=== PATIENT | female | born 1985 | race Caucasian/White ===

== ENCOUNTER 2016-06-29 18:24 | Emergency (ER) | payer MEDICAID ==
[2016-06-29] MEDS ORDERED: LIDOCAINE 5% (700 MG) TRANSDERMAL ADH..PATCH TP ONE (18:54)
[2016-06-29] MEDS ORDERED: IBUPROFEN 600 MG TABLET PO ONE (18:54)
[2016-06-29] MEDS ORDERED: DIPH/PERTUSS(ACELL)/TETANUS VAC/PF 0.5 ML SYR (>=10YO) IM ONE (19:29)
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
[2016-06-29 19:38] VITALS: BP 136/88
== END 2016-06-29 19:48 | disposition home or self-care (01) ==
LOC: ER 18:24
DX: S70.211A Abrasion, right hip, initial encounter (principal); M25.551 Pain in right hip; F17.200 Nicotine dependence, unspecified, uncomplicated; V03.19XA Pedestrian with other conveyance injured in collision with car, pick-up truck or van in traffic accident, initial encounter
CPT/HCPCS: 99283

== ENCOUNTER 2017-04-07 17:55 | Outpatient (CLI) | payer MEDICAID ==
[2017-04-07 18:22] LABS: APPEARANCE,URINE SLIGHTLY-CLOUDY; BILIRUBIN,URINE NEGATIVE (NEGATIVE); GLUCOSE, URINE NEGATIVE (NEGATIVE); KETONES,URINE NEGATIVE (NEGATIVE); LEUKOCYTE ESTERASE,URINE MODERATE (NEGATIVE); NITRITE,URINE NEGATIVE (NEGATIVE); PROTEIN,URINE NEGATIVE (NEGATIVE); URINE SPECIFIC GRAVITY 1.001; UROBILINOGEN,URINE NEGATIVE mg/dL (<2.0)
[2017-04-07 18:35] LABS: URINE BARBITURATES SCREEN NEGATIVE; URINE METHADONE SCREEN NEGATIVE; URINE OPIATES LOW NEGATIVE; URINE PHENCYCLIDINE SCREEN NEGATIVE
--- NOTE | 2017-04-07 19:06 | Non Stress Test Report ---
Non Stress Test Datetime Report Generated by CPN: 04/07/2017 19:05 DEMOGRAPHIC EGA NST: 36.6 INDICATION Indication for Study: Ordered by Provider MONITORING Monitor Explained: Monitor Explained; Test Explained; Patient Verbalized Understanding Time on Monitor: 04/07/2017 18:11 Time off Monitor: 04/07/2017 18:53 NST Duration: 42 NST INTERVENTIONS NST Interventions: None Physician Notified NST: Dr Montes BABY A: [id number] BABY A Movement : Present Contraction Frequency : irregular FHR Baseline : 120 Accelerations : 15X15 Decelerations : None Variability : Moderate 6-25bpm NST Review: Meets Criteria for Reactive NST NST Review and Verified By : Hieu Walton RN NST Results: Reactive NST REPORT Report Trigger: Send Report
== END 2017-04-07 18:58 | disposition home or self-care (01) ==
LOC: LC 17:55
PROVIDERS: ATTEND Obstetrics & Gynecology
PROC: 4A1HXCZ Monitoring of Products of Conception, Cardiac Rate, External Approach (ICD-10-PCS; principal; 2017-04-07)
DX: Z34.93 Encounter for supervision of normal pregnancy, unspecified, third trimester (principal)
CPT/HCPCS: 59025; 80307; 81005; 87081

== ENCOUNTER 2017-05-30 11:56 | Emergency (ER) | payer MEDICAID ==
[2017-05-30] MEDS ORDERED: CEPHALEXIN 500 MG CAPSULE PO ONE (12:26)
[2017-05-30] MEDS ORDERED: LIDOCAINE 1% INJ-PF (10 MG/ML) 30 ML SDV INJ ONE (12:26)
[2017-05-30] MEDS ORDERED: DIPH/PERTUSS(ACELL)/TETANUS VAC/PF 0.5 ML SYR (>=10YO) IM ONE (12:26)
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
[2017-05-30] MEDS ORDERED: ACETAMINOPHEN WITH CODEINE #3 TABLET PO ONE (12:29)
--- NOTE | 2017-05-30 13:32 | RADIOLOGY REPORT (SQ) ---
EXAM DESCRIPTION: HAND RIGHT 3 VIEWS COMPLETED DATE/TIME: 05/30/2017 1:07 pm REASON FOR STUDY: lacs, r/o FB COMPARISON: Right forearm films same date EXAM PARAMETERS: NUMBER OF VIEWS: Three views. TECHNIQUE: AP, lateral and oblique radiographic images acquired of the right hand. LIMITATIONS: None. FINDINGS: MINERALIZATION: Normal. BONES: No acute fracture or dislocation. No worrisome bone lesions. JOINTS: No effusions. SOFT TISSUES: There are lacerations along ulnar aspect of the right hand near the 5th MCP joint, and at the 5th finger PIP joint. Tiny fragments glass are seen in the laceration at the fifth finger PIP joint region. No definite radiopaque foreign body in the laceration along the fifth MCP joint OTHER: No other significant finding. IMPRESSION: Laceration without definite radiopaque foreign body, ulnar hand near the MCP joint. Laceration with few tiny radiopaque foreign bodies fifth finger PIP joint region TECHNICAL DOCUMENTATION: JOB ID: [id number] [employer]- All Rights Reserved
--- NOTE | 2017-05-30 13:35 | RADIOLOGY REPORT (SQ) ---
EXAM DESCRIPTION: FOREARM RIGHT COMPLETED DATE/TIME: 05/30/2017 1:07 pm REASON FOR STUDY: lacs, r/o FB COMPARISON: Right hand films same day NUMBER OF VIEWS: Two views. TECHNIQUE: Two radiographic images acquired of the right forearm, including elbow and wrist in at le ast one projection. LIMITATIONS: None. FINDINGS: MINERALIZATION: Normal. BONES: No acute fracture. No worrisome bone lesions. SOFT TISSUES: Laceration over the ulnar soft tissues distal right forearm, and along the soft tissues near the radial styloid. No radiopaque foreign body OTHER: No other significant finding. IMPRESSION: Laceration over the right distal forearm ulnar aspect, and along the soft tissues near t he radial styloid. No definite radiopaque foreign body. No underlying bony injury. TECHNICAL DOCUMENTATION: JOB ID: [id number] [employer]- All Rights Reserved
[2017-05-30 15:51] VITALS: BP 140/92
== END 2017-05-30 15:50 | disposition home or self-care (01) ==
LOC: ER 11:56
DX: S61.412A Laceration without foreign body of left hand, initial encounter (principal); S61.217A Laceration without foreign body of left little finger without damage to nail, initial encounter; S51.812A Laceration without foreign body of left forearm, initial encounter; S61.512A Laceration without foreign body of left wrist, initial encounter; W45.8XXA Other foreign body or object entering through skin, initial encounter; Y93.G1 Activity, food preparation and clean up; Y92.009 Unspecified place in unspecified non-institutional (private) residence as the place of occurrence of the external cause
CPT/HCPCS: 99283; 90471; 73090; 73130; 90715; 12006; J3490

== ENCOUNTER 2019-05-20 08:40 | Emergency (ER) | payer MEDICAID ==
--- NOTE | 2019-05-20 10:22 | ER Document Report ---
ED General - General Chief Complaint: Vaginal Bleeding Stated Complaint: VAGINAL BLEEDING//LOWER BACK PAIN Time Seen by Provider: 05/20/19 10:15 Primary Care Provider: ANASTACIA MEDEL FNP-C [Primary Care Provider] - Follow up as needed TRAVEL OUTSIDE OF THE [place] IN LAST 30 DAYS: No - HPI Notes: [id number], LMP 04-19-2019, last complicated by abruption of placenta, htn even outside setting of , presents today for light bleeding that started yesterday now is heavy she denies any abdominal trauma she denies any abdominal pain no vomiting. She is a cigarette smoker, - Related Data Allergies/Adverse Reactions: coconut Allergy (Severe, Verified 05/20/19 10:36) rash acetaminophen [From Vicodin] Allergy (Verified 05/20/19 10:36) hydrocodone [From Vicodin] Allergy (Verified 05/20/19 10:36) oxycodone [From Percocet] Allergy (Verified 05/20/19 10:36) nickel Adverse Reaction (Severe, Verified 05/20/19 10:36) rash Past Medical History - General Information source: Patient - Social History Smoking Status: Current Every Day Smoker Chew tobacco use (# tins/day): No Frequency of alcohol use: Social Drug Abuse: None Family History: Reviewed & Not Pertinent Patient has suicidal ideation: No Patient has homicidal ideation: No - Past Medical History Cardiac Medical History: Denies: Hx Coronary Artery Disease, Hx Heart Attack, Hx Hypertension - flucturates with b/c pill/no meds Pulmonary Medical History: Denies: Hx Asthma, Hx Bronchitis, Hx COPD, Hx Pneumonia Neurological Medical History: Denies: Hx Cerebrovascular Accident, Hx Seizures Renal/ Medical History: Reports: Other - Besides last preg C/B by placenta abruptioe, all . Denies: Hx Ectopic , Hx Pelvic Inflammatory Disease GI Medical History: Denies: Hx Hepatitis, Hx Hiatal Hernia, Hx Ulcer Musculoskeletal Medical History: Denies Hx Arthritis Infectious Medical History: Denies: Hx Hepatitis Past Surgical History: Denies: Hx Hysterectomy, Hx Mastectomy, Hx Open Heart Surgery, Hx Pacemaker - Immunizations Hx Diphtheria, Pertussis, Tetanus Vaccination: Yes Review of Systems - Review of Systems Constitutional: No symptoms reported EENT: No symptoms reported Cardiovascular: No symptoms reported Respiratory: No symptoms reported Gastrointestinal: No symptoms reported, See HPI. denies: Abdominal pain, Diarrhea, Nausea, Vomiting, Constipation, Poor appetite, Poor fluid intake, Black stools, Rectal bleeding Genitourinary: No symptoms reported Female Genitourinary: No symptoms reported, Last menstrual period - --19, - They have set up their first OB appointment for this afternoon actually prior to knowing she had started to have vaginal bleeding. Musculoskeletal: No symptoms reported. denies: Back pain Skin: No symptoms reported Hematologic/Lymphatic: No symptoms reported Neurological/Psychological: No symptoms reported Physical Exam - Vital signs Vitals: Temp Pulse Resp BP Pulse Ox 98.0 F 92 16 146/101 H 99 05/20/19 08:52 05/20/19 08:52 05/20/19 08:52 05/20/19 08:52 05/20/19 08:52 Interpretation: Normal - General General appearance: Appears well, Alert In distress: None - HEENT Head: Normocephalic, Atraumatic Eyes: Normal. No: Pale conjunctiva, Periorbital edema, Scleral icterus Pupils: PERRL Mucous membranes: Normal, Moist Pharynx: Normal. No: Erythema, Exudate Neck: Normal. No: Thyroid nodule, Thyromegally - Respiratory Respiratory status: No respiratory distress Chest status: Nontender Breath sounds: Normal Chest palpation: Normal - Cardiovascular Rhythm: Regular, Other - All EXT WWP X4 Heart sounds: Normal auscultation Murmur: No Pulses: Normal: Radial - Symmetric - Abdominal Inspection: Normal Distension: No distension. No: Distended bladder Bowel sounds: Normal Tenderness: Nontender. No: McBurney's point, Sol's sign, Guarding, Rebound Organomegaly: No organomegaly - Genitourinary External exam: Other. No: Lesions, Laceration, Bruising Speculum exam: Cervix closed, Other - Very slow oozing of vaginal blood from closed office without any clotting or other solid materials. Otherwise cervical mucosa appears healthy as well as vaginal wall and external genitalia no evidence of any infection or discharge.. No: Products of conception - Back Back: Normal, Nontender. No: Deformity/step-off, CVA tenderness, Vertebra tenderness, Wounds - Extremities General upper extremity: Normal inspection - No edema no tenderness no asymmetry BUE/BLE, Nontender, Normal color, Normal ROM, Normal temperature General lower extremity: Normal inspection, Nontender, Normal color, Normal ROM, Normal temperature, Normal weight bearing. No: Elle's sign - Neurological Neuro grossly intact: Yes Cognition: Normal Orientation: AAOx4 Jacqueline Coma Scale Eye Opening: Spontaneous Jacqueline Coma Scale Verbal: Oriented Jacqueline Coma Scale Motor: Obeys Commands Jacqueline Coma Scale Total: 15 Speech: Normal Motor strength normal: LUE, RUE, LLE, RLE Sensory: Normal - Psychological Associated symptoms: Normal affect, Normal mood - Skin Skin Temperature: Warm Skin Moisture: Dry Skin Color: Normal Course - Re-evaluation Re-evalutation: 05/20/19 23:45 Did go for transvaginal ultrasound since I could not see a definitive yolk sac or intrauterine on transabdominal scan at bedside in ED. I could not see any free fluid in the pelvis either. Patient tolerated that well. She had no evidence of definite IUP or evidence of ectopic on TVUS. Patient was waiting for me to come tell her the report prior to me discharging also reviewed patient's prior blood bank screens saying that she was Rh+. Her urine did show blood as expected and white blood cells and positive LE in setting of no urinary symptoms. Wrote for Keflex for asymptomatic bacteriuria in and sent urine culture. No evidence of BV or GC/CZ on speculum exam samples of endocervix. Ordered serum hCG. But, RN looking for patient and found she seemed to have left when out on second trip to [place] for [employer] and prior to me being able to discharge her give her prescription or discuss specifically the fact that we need to draw a serum hCG and it imperative that she follows up for a second hCG within 48 to 72 hours at her OB provider since we cannot rule out ectopic and we know she is versus we cannot see on transvaginal ultrasound 2/2 she is early per LMP. Also wanted to discuss warning signs to return more immediately if she has abdominal pain or brisk continued vaginal bleeding. Or is unable for some reason to follow-up with her SHAKER REPAIRER within this 48 to 72-hour. Nurse finally got in contact with the patient and patient explained she had to pick her kids up from school. She did miss her initial OB appointment at the clinic because she was here she explained to nurse but nurse took down her number and patient understands I will be calling her I tried a few times in the evening and go straight to voicemail and says this found does not have voicemail set up. I will try again in the morning the number we have on file for her in the number for which the nurse talked to her earlier after a few unsuccessful times in which she also had gotten the same voicemail message as above. - Vital Signs Vital signs: Temp Pulse Resp BP Pulse Ox 98.3 F 67 16 152/96 H 100 05/20/19 12:57 05/20/19 12:57 05/20/19 12:57 05/20/19 12:57 05/20/19 12:57 - Laboratory Laboratory results interpreted by me: 05/20/19 09:30 Urine Protein 100 H Urine Blood MODERATE H Ur Leukocyte Esterase SMALL H Urine HCG, Qual POSITIVE H - Diagnostic Test Radiology reviewed: Image reviewed, Reports reviewed Discharge - Discharge Clinical Impression: UTI (urinary tract infection) during , First trimester bleeding, Cant r/o ectopic early preg Condition: Good Disposition: ELOPED Additional Instructions: Please keep your appointment with your SHAKER REPAIRER this afternoon or call if unable to get there today to reschedule. Today we are sending off a blood hCG level. This will need to be reviewed by her SHAKER REPAIRER and then a repeat is needed in 48 to 72 hours. Therefore when you call to reschedule appointment today say you also need to have this lab test done, since we were unable to see a intrauterine , which could be expected since you are early per your last menstrual period, but we also need to ensure you do not have an ectopic . On the ultrasound we did not see an ectopic either but that does not mean it is not possible still. Watch for any continued heavy vaginal bleeding more than a few hours at a time or any dizziness, otherwise we checked your blood type, and therefore you do not need any interventions for your bleeding in . We are prescribing you an antibiotic for some white blood cells in your urine, we are sending off a urine culture which will result in a few days I am writing you an antibiotic it is important to take since you are and your increased risk for developing a renal infection. They will call you with the urine culture results if there is a need for a different type of antibiotic than the one I am prescribing. Prescriptions: Cephalexin [Cephalexin 500 MG Tablet] 500 mg PO BID 7 Days #14 tablet Referrals: ANASTACIA MEDEL, DATA CAPTURE CLERK-C [Primary Care Provider] - Follow up as needed
[2019-05-20 10:23] LABS: APPEARANCE,URINE SLIGHTLY-CLOUDY; BILIRUBIN,URINE NEGATIVE (NEGATIVE); COLOR,URINE RED; GLUCOSE, URINE NEGATIVE (NEGATIVE); KETONES,URINE NEGATIVE (NEGATIVE); LEUKOCYTE ESTERASE,URINE SMALL (NEGATIVE); NITRITE,URINE NEGATIVE (NEGATIVE); PROTEIN,URINE 100 mg/dL (NEGATIVE); UROBILINOGEN,URINE NEGATIVE mg/dL (<2.0)
[2019-05-20 11:39] LABS: BACTERIA (WET MOUNT) 3+ BACTERIA SEEN; RBCS (WET MOUNT) 4+ RBCS SEEN; T.VAGINALIS (WET MOUNT) NO TRICHOMONAS SEEN; WBCS (WET MOUNT) FEW WBCS SEEN; YEAST (WET MOUNT) NO YEAST SEEN
--- NOTE | 2019-05-20 12:31 | RADIOLOGY REPORT (SQ) ---
EXAM DESCRIPTION: U/S OB TRANSVAGINAL W/O DOP COMPLETED DATE/TIME: 05/20/2019 12:17 pm REASON FOR STUDY: bleeding 1st trimester COMPARISON: 04/03/2017 TECHNIQUE: Transvaginal static and realtime grayscale images acquired of the pelvis. Additional chong cted spectral and color Doppler images recorded. All images stored on PACs. CLINICAL AGE: LMP: 04/18/2019, JORGE: 01/23/2020, EGA: 4 weeks 4 days BHCG: Not available. LIMITATIONS: None. FINDINGS: UTERUS: No visualized intrauterine . Uterus measures 9.0 x 4.7 x 4.4 cm. Endome trial stripe measures 8.9 mm. RIGHT ADNEXA: Nonvisualized. No adnexal free fluid. No adnexal masses. LEFT ADNEXA: Nonvisualized. No adnexal free fluid. No adnexal masses. FREE FLUID: None. OTHER: No other significant finding. IMPRESSION: NO VISUALIZED INTRA- OR EXTRAUTERINE WHICH IS NOT UNEXPECTED GIVEN CLINICAL DA SURESH. bHCG LEVEL NOT AVAILABLE FOR CORRELATION WITH US FINDINGS. ECTOPIC CANNOT BE EXCLUDED. FOLLOW-UP ULTRASOUND AND SERIAL BHCG LEVELS RECOMMENDED TO ACCURATELY ASSESS STATUS. TECHNICAL DOCUMENTATION: JOB ID: [id number] [employer]- All Rights Reserved Reading location - IP/workstation name: [email or web address]
[2019-05-20 12:57] LABS: CHLAM PCR NOT DETECTED (NOT DETECT)
[2019-05-20 12:58] VITALS: BP 152/96
== END 2019-05-20 14:00 | disposition left against medical advice (07) ==
LOC: ER 08:40
DX: O23.41 Unspecified infection of urinary tract in pregnancy, first trimester (principal); O46.91 Antepartum hemorrhage, unspecified, first trimester; O26.891 Other specified pregnancy related conditions, first trimester; M54.5 Low back pain; O10.911 Unspecified pre-existing hypertension complicating pregnancy, first trimester; O99.331 Smoking (tobacco) complicating pregnancy, first trimester; Z3A.00 Weeks of gestation of pregnancy not specified
CPT/HCPCS: 76817; 81001; 81025; 87086; 87210; 87491; 87591; 99281

== ENCOUNTER 2019-11-26 22:35 | Emergency (ER) | payer SELFPAY ==
[2019-11-26 22:46] VITALS: BP 109/55
[2019-11-26 23:27] LABS: ABSOLUTE EOSINOPHILS # (AUTO) 0.1 10^3/uL (0.0-0.6); ABSOLUTE MONOCYTES (AUTO) 0.5 10^3/uL (0.1-1.4); HEMOGLOBIN 10.5 g/dL (12.0-15.5); MEAN CORPUSCULAR VOLUME 101 fl (80-97); PLATELET COUNT 231 10^3/uL (150-450); TOTAL CELLS COUNTED % (AUTO) 100 %
[2019-11-26 23:40] LABS: ABSOLUTE LYMPHOCYTES (AUTO) 2.5 10^3/uL (0.5-4.7); BASOPHILS % (AUTO) 0.5 % (0-2); EOSINOPHILS % (AUTO) 1.1 % (0-6); LYMPHOCYTES % (AUTO) 27.5 % (13-45); MEAN CORPUSCULAR HEMOGLOBIN 35.6 pg (27.0-33.4); MEAN CORPUSCULAR HGB CONC 35.1 g/dL (32.0-36.0); RED BLOOD COUNT 2.95 10^6/uL (3.72-5.28); RED CELL DISTRIBUTION WIDTH 15.1 % (11.5-14.0); SEGMENTED NEUTROPHILS % (AUTO) 65.9 % (42-78); WHITE BLOOD COUNT 9.1 10^3/uL (4.0-10.5)
--- NOTE | 2019-11-27 00:23 | ER Document Report ---
ED General - General Chief Complaint: Vag Bleeding, +preg <12wks Stated Complaint: HYPOGASTRIC/PELVIC PAIN Time Seen by Provider: 11/26/19 23:49 Notes: 34-year-old female who is a G5, presents the emergency department at 7 weeks gestation with a due date of April 21 stating that the baby dropped "low" today and she has been having lower abdominal pain, the urgency to urinate and needs to have a bowel movement but nothing is coming out associated with a gush of clear fluid approximately 2 hours prior to arrival. Patient states she is not sure if she peed on herself or if her amniotic fluid burst and came out. Patient has not had any further vaginal discharge since the initial gush of fluid. Fluid was clear and not bloody. Patient also complains of not being able to feel the baby move for the past day. TRAVEL OUTSIDE OF THE [place] IN LAST 30 DAYS: No - Related Data Allergies/Adverse Reactions: coconut Allergy (Severe, Verified 05/20/19 10:36) rash acetaminophen [From Vicodin] Allergy (Verified 05/20/19 10:36) hydrocodone [From Vicodin] Allergy (Verified 05/20/19 10:36) oxycodone [From Percocet] Allergy (Verified 05/20/19 10:36) nickel Adverse Reaction (Severe, Verified 05/20/19 10:36) rash Past Medical History - General Information source: Patient - Social History Smoking Status: Current Every Day Smoker Chew tobacco use (# tins/day): No Frequency of alcohol use: None Drug Abuse: None Family History: Reviewed & Not Pertinent Patient has homicidal ideation: No - Past Medical History Cardiac Medical History: Denies: Hx Coronary Artery Disease, Hx Heart Attack, Hx Hypertension - flucturates with b/c pill/no meds Pulmonary Medical History: Denies: Hx Asthma, Hx Bronchitis, Hx COPD, Hx Pneumonia Neurological Medical History: Denies: Hx Cerebrovascular Accident, Hx Seizures Renal/ Medical History: Denies: Hx Ectopic , Hx Peritoneal Dialysis, Hx Pelvic Inflammatory Disease GI Medical History: Denies: Hx Hepatitis, Hx Hiatal Hernia, Hx Ulcer Musculoskeletal Medical History: Denies Hx Arthritis Infectious Medical History: Denies: Hx Hepatitis Past Surgical History: Denies: Hx Hysterectomy, Hx Mastectomy, Hx Open Heart Surgery, Hx Pacemaker - Immunizations Hx Diphtheria, Pertussis, Tetanus Vaccination: Yes Review of Systems - Review of Systems Constitutional: No symptoms reported Gastrointestinal: See HPI Genitourinary: See HPI Female Genitourinary: See HPI -: Yes All other systems reviewed and negative Physical Exam - Vital signs Vitals: Temp 97.6 F 11/26/19 22:43 Interpretation: Tachycardic - Notes Notes: GENERAL: Alert, interacts well. No acute distress. HEAD: Normocephalic, atraumatic EYES: Pupils equal, round and reactive to light, extraocular movements intact. ENT: Oral mucosa moist, tongue midline. NECK: Full range of motion, supple, trachea midline. LUNGS: Clear to auscultation bilaterally, no wheezes, rales or rhonchi, no respiratory distress. HEART: Regular rate and rhythm, no murmurs, gallops, rubs. ABDOMEN: Mild lower abdominal tenderness to palpation, abdomen is gravid, appropriate for dates, bowel sounds present in all 4 quadrants. EXTREMITIES: Moves all 4 extremities spontaneously, no edema, radial and dorsalis pedis pulses 2/4 bilaterally. No cyanosis. NEUROLOGICAL: Alert and oriented x3, normal speech. PSYCH: Appropriately anxious given the fact that she is worried she may be going into labor at 17 weeks. SKIN: Warm, Dry, normal turgor, no rashes or lesions noted. - Genitourinary Notes: Cervix is closed, no cervical motion tenderness, no vaginal discharge. No continual leak of amniotic fluid. Course - Re-evaluation Re-evalutation: 11/27/19 00:42 CBC shows anemia with a hemoglobin of 10.5. Patient has previously had a blood typing done before, she is O+. No indication for RhoGam. Pelvic examination was performed, swabs were taken and sent for ferning. Ultrasound is pending. During pelvic examination patient states she can feel the baby moving. This is obviously quite reassuring. 11/27/19 02:35 CBC shows mild anemia with a hemoglobin of 10.5, urinalysis does not show any signs of urinary tract infection, slide looking for ferning is negative. Patient started feeling movement during the pelvic exam as noted above, ultrasound had been ordered, when ultrasound arrived to take the patient for ultrasound the patient had eloped. She is not answering her phone number that she left and she is not in the waiting room. Patient has apparently left without completing treatment. - Vital Signs Vital signs: Temp Pulse Resp BP Pulse Ox 97.6 F 102 H 16 109/55 L 100 11/26/19 22:45 11/26/19 22:45 11/26/19 22:45 11/26/19 22:45 11/26/19 22:45 - Laboratory Result Diagrams: 11/26/19 23:01 Laboratory results interpreted by me: 11/26/19 23:01 RBC 2.95 L Hgb 10.5 L Hct 30.0 L MCV 101 H MCH 35.6 H RDW 15.1 H Discharge - Discharge Clinical Impression: Second trimester , Abdominal pain affecting Condition: Stable Disposition: ELOPED
[2019-11-27 00:58] LABS: APPEARANCE,URINE CLEAR; BILIRUBIN,URINE NEGATIVE (NEGATIVE); COLOR,URINE YELLOW; GLUCOSE, URINE NEGATIVE (NEGATIVE); KETONES,URINE NEGATIVE (NEGATIVE); LEUKOCYTE ESTERASE,URINE NEGATIVE (NEGATIVE); NITRITE,URINE NEGATIVE (NEGATIVE); PROTEIN,URINE NEGATIVE (NEGATIVE); URINE SPECIFIC GRAVITY 1.012; UROBILINOGEN,URINE NEGATIVE mg/dL (<2.0)
== END 2019-11-27 01:41 | disposition left against medical advice (07) ==
LOC: ER 22:35
DX: O20.9 Hemorrhage in early pregnancy, unspecified (principal); R10.9 Unspecified abdominal pain; F17.200 Nicotine dependence, unspecified, uncomplicated; Z3A.01 Less than 8 weeks gestation of pregnancy; Z88.6 Allergy status to analgesic agent
CPT/HCPCS: 99281; 36415; 85025; 81001; Q0114

== ENCOUNTER 2020-02-29 03:01 | Inpatient (IN) | payer SELFPAY ==
[2020-02-29] MEDS ORDERED: RINGERS SOLUTION,LACTATED 1,000 ML IV PRN (03:10)
[2020-02-29] MEDS ORDERED: OXYTOCIN 10 UNIT/ML VIAL ONE (03:13)
[2020-02-29] MEDS ORDERED: ACETAMINOPHEN WITH CODEINE #3 TABLET ONE (03:14)
[2020-02-29 03:45] LABS: ABSOLUTE EOSINOPHILS # (AUTO) 0.1 10^3/uL (0.0-0.6); ABSOLUTE MONOCYTES (AUTO) 0.5 10^3/uL (0.1-1.4); ABSOLUTE NEUT (AUTO) 8.2 10^3/uL (1.7-8.2); BASOPHILS % (AUTO) 0.4 % (0-2); EOSINOPHILS % (AUTO) 0.9 % (0-6); HEMATOCRIT 29.9 % (36.0-47.0); HEMOGLOBIN 10.5 g/dL (12.0-15.5); LYMPHOCYTES % (AUTO) 18.1 % (13-45); MEAN CORPUSCULAR HEMOGLOBIN 34.9 pg (27.0-33.4); MEAN CORPUSCULAR HGB CONC 35.1 g/dL (32.0-36.0); MEAN CORPUSCULAR VOLUME 100 fl (80-97); PLATELET COUNT 232 10^3/uL (150-450); RED BLOOD COUNT 3.01 10^6/uL (3.72-5.28); RED CELL DISTRIBUTION WIDTH 14.8 % (11.5-14.0); SEGMENTED NEUTROPHILS % (AUTO) 75.6 % (42-78); TOTAL CELLS COUNTED % (AUTO) 100 %; WHITE BLOOD COUNT 10.9 10^3/uL (4.0-10.5)
[2020-02-29] MEDS ORDERED: MISOPROSTOL 0.2 MG TABLET ONE (04:22)
[2020-02-29 05:59] LABS: ALBUMIN 3.2 g/dL (3.5-5.0); ALKALINE PHOSPHATASE 122 U/L (38-126); ANION GAP 8 (5-19); ASPARTATE AMINO TRANSFERASE 23 U/L (14-36); BILIRUBIN,DIRECT 0.3 mg/dL (0.0-0.4); BILIRUBIN,TOTAL 0.3 mg/dL (0.2-1.3); BLOOD UREA NITROGEN 4 mg/dL (7-20); CALCIUM 8.6 mg/dL (8.4-10.2); CARBON DIOXIDE 16 mmol/L (22-30); CHLORIDE 111 mmol/L (98-107); GLUCOSE 106 mg/dL (75-110); TOTAL PROTEIN 5.7 g/dL (6.3-8.2); URIC ACID 7.2 mg/dL (2.5-7.0)
--- NOTE | 2020-02-29 06:13 | Admission Physical ---
Datetime Report Generated by CPN: 02/29/2020 06:13 CURRENT ADMISSION Chief Complaint: Uterine Contractions Chief Complaint Other: Patient brought by EMS due to precipitous delivery at home. 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 Placenta delivered there as well. DOing well. NO f/c, n/v Admit Impression : , Intrauterine Admit Plan: Admit to Unit ALLERGIES Medication Allergies: hydrocodone (05/20/2019); oxycodone (05/20/2019); acetaminophen (05/20/2019); nickel/SV/rash (05/20/2019); coconut/SV/rash (05/20/2019) Latex: No Latex Allergies OBSTETRICAL HISTORY EDC: 04/21/2020 00:00 : 5 Para: 3 Term: 3 Livin Gestational Diabetes: No Rh Sensitization: No Incompetent Cervix: No LATOSHA: No Infertility: No ART Treatment: No Uterine Anomaly: No IUGR: No Hx Previous C/S: No Macrosomia: No Hx Loss/Stillborn: No PIH: Yes Hx : No Placenta Previa/Abruption: Yes Depression/PP Depression: No PTL/PROM: No Post Hemorrhage: No Current Procedures: Ultrasound; NST SEE RECORDS Alcohol: No Marijuana : No Cocaine: No Other Illicit Drugs: No Cigarettes: Current Everyday Smoker. 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 Heart Disease: No Hosp/Surgery: No Autoimmune Disorder: No Anesthetic Complications: No Kidney Disease: No Abnormal Pap Smear: No Neuro/Epilepsy: No Psychiatric Disorders: No Other Medical Diseases: No Hepatitis/Liver Disease: No Significant Family History: No Varicosities/Phlebitis: No Trauma/Violence : No Thyroid Dysfunction: No INFECTIOUS HISTORY Gonorrhea: No Genital Herpes: No Chlamydia: No Tuberculosis: No Syphilis: No Hepatitis: No HIV/AIDS Exposure: No Rash or Viral Illness: No HPV: No PHYSICAL EXAM General: Normal HEENT: Normal Neurologic: Normal Thyroid: Normal Heart: Normal Lungs: Normal Breast: Normal Back: Normal Abdomen: Normal Genitourinary Exam: Normal Extremities: Normal DTRs: Normal Pelvic Type: Adequate Vital Signs: Reviewed; Within Normal Limits FETUS A EGA: 32.4 Admit Comment: at approximately 34 weeks who delivered at home precipitously at home -Admit to LDR-->then post -VSS, mildly elevated b/p . NO severes. WIll get PIH panel -Exam negative. One small first degree right labia minora, hemostatic -Fundus firm and bleeding light. Continue fundal massage Q 15 min. Pitocin ordered -IVFs on liter LR and may have regular diet -She is RH negative , rhogam ordered PLANS FOR LABOR AND DELIVERY Labor and Delivery: None Pain Management: None Feeding Preference: Both Benefit of Breast Feed Discussed: Yes Circumcision: N/A INFORMED CONSENT Signature: with User ID: Jackelin : with User ID: [email or web address]
[2020-02-29] MEDS ORDERED: MAGNESIUM HYDROXIDE SUSP 30 ML UDCUP PO PRN (06:21)
[2020-02-29] MEDS ORDERED: PROMETHAZINE HCL INJ 25 MG/1 ML VIAL IV PRN (06:21)
[2020-02-29] MEDS ORDERED: MEASLES,MUMPS&RUBELLA VACC/PF 0.5 ML VIAL SUBCUT PRN (06:21)
[2020-02-29] MEDS ORDERED: DIPH/PERTUSS(ACELL)/TETANUS VAC/PF 0.5 ML SYR (>=10YO) IM PRN (06:21)
[2020-02-29] MEDS ORDERED: PSEUDOEPHEDRINE HCL 30 MG TABLET PO PRN (06:21)
[2020-02-29] MEDS ORDERED: ACETAMINOPHEN 325 MG TABLET PO PRN (06:21)
[2020-02-29] MEDS ORDERED: PROMETHAZINE HCL 25 MG TABLET PO PRN (06:21)
[2020-02-29] MEDS ORDERED: ACETAMINOPHEN WITH CODEINE #3 TABLET PO PRN ×2 (06:21)
[2020-02-29] MEDS ORDERED: ACETAMINOPHEN 650 MG SUPP.RECT PR PRN (06:21)
[2020-02-29] MEDS ORDERED: BENZOCAINE/MENTHOL AEROSOL SPRAY 56 ML TOP PRN (06:21)
[2020-02-29] MEDS ORDERED: DIBUCAINE 1% OINTMENT 28 GM TP PRN (06:21)
[2020-02-29] MEDS ORDERED: NA PHOS,M-B/NA PHOS,DI-BA (ADULT) 133 ML ENEMA PR PRN (06:21)
[2020-02-29] MEDS ORDERED: DIPHENHYDRAMINE HCL 25 MG CAPSULE PO PRN (06:21)
[2020-02-29] MEDS ORDERED: GLYCERIN/WITCH HAZEL LEAF 1 EACH MED..WIPE TP PRN (06:21)
[2020-02-29] MEDS ORDERED: OXYTOCIN/0.9 % SODIUM CHLORIDE 30 UNIT/500 ML RTUINJ IV PRN (06:21)
[2020-02-29] MEDS ORDERED: ZOLPIDEM TARTRATE 5 MG TABLET PO PRN (06:21)
[2020-02-29] MEDS ORDERED: PROMETHAZINE HCL 25 MG SUPP.RECT PR PRN (06:21)
[2020-02-29] MEDS: IBUPROFEN 800 MG TABLET PO SCH ×3 (06:53→22:32)
[2020-02-29 08:05] LABS: CHLAM PCR NOT DETECTED (NOT DETECT)
[2020-02-29] MEDS: SENNOSIDES/DOCUSATE 8.6-50 MG 1 EACH TABLET PO SCH (09:48)
[2020-02-29] MEDS: FERROUS SULFATE 325 MG TABLET PO SCH ×2 (09:48→18:06)
[2020-02-29] MEDS: FAMOTIDINE 20 MG TABLET PO SCH ×2 (09:48→22:31)
[2020-02-29] MEDS: PRENATAL VITAMIN W DHA CAPSULE PO SCH (09:48)
[2020-02-29] MEDS: DOCUSATE SODIUM 100 MG CAPSULE PO SCH ×2 (09:48→18:06)
[2020-02-29 10:42] LABS: URINE AMPHETAMINES SCREEN NEGATIVE; URINE BARBITURATES SCREEN NEGATIVE; URINE BENZODIAZEPINES SCREEN NEGATIVE; URINE COCAINE SCREEN NEGATIVE; URINE METHADONE SCREEN NEGATIVE; URINE PHENCYCLIDINE SCREEN NEGATIVE
[2020-02-29 10:57] LABS: URINE MARIJUANA (THC) SCREEN UNCONFIRMED POSITIVE
--- NOTE | 2020-02-29 11:04 | PDOC PROGRESS REPORT ---
Subjective-OB Progress Note for:: 02/29/20 Subjective: no c/o, baby in room with pt, feels good, scant bleeding Physical Exam (OB) Vital Signs: Temp Pulse Resp BP Pulse Ox 97.8 F 73 18 124/80 100 02/29/20 07:11 02/29/20 07:11 02/29/20 07:11 02/29/20 07:11 02/29/20 07:11 - PIH/Pre-Eclampsia Epigastric Pain: No Visual Changes: No - Maternal Morbidity 59. Maternal Morbidity (serious complications experinced by the mother associated with labor and delivery: None of the above - Lochia Lochia Amount: Moderate 25-50 ml Lochia Color: Rubra/Red - Abdomen Description: Tender, Soft Hernia Present: No Fundal Description: Firm, Midline Fundal Height: u/u - u/2 Objective-Diagnostic Laboratory: 02/29/20 03:27 02/29/20 03:27 02/29/20 02/29/20 02/29/20 03:27 03:27 03:27 WBC 10.9 H RBC 3.01 L Hgb 10.5 L Hct 29.9 L MCV 100 H MCH 34.9 H MCHC 35.1 RDW 14.8 H Plt Count 232 Seg Neutrophils % 75.6 Sodium 135.1 L Potassium 4.0 Chloride 111 H Carbon Dioxide 16 L Anion Gap 8 BUN 4 L Creatinine 0.48 L Est GFR ( Amer) > 60 Glucose 106 Uric Acid 7.2 H Calcium 8.6 Total Bilirubin 0.3 AST 23 Alkaline Phosphatase 122 Total Protein 5.7 L Albumin 3.2 L Blood Type O POSITIVE Antibody Screen NEGATIVE Assessment and Plan(PN) - Assessment and Plan (1) DELIVERED OUTSIDE HOSPITAL Is this a current diagnosis for this admission?: Yes - Time Spent with Patient Time with patient: Less than 15 minutes Medications reviewed and adjusted accordingly: Yes - Disposition Anticipated Discharge Disposition: Home, Self Care Anticipated Discharge Timeframe: within 24 hours
[2020-03-01] MEDS: IBUPROFEN 800 MG TABLET PO SCH ×3 (05:27→21:58)
[2020-03-01 07:06] LABS: HEMATOCRIT 22.8 % (36.0-47.0); MEAN CORPUSCULAR HEMOGLOBIN 34.8 pg (27.0-33.4); MEAN CORPUSCULAR VOLUME 100 fl (80-97); PLATELET COUNT 190 10^3/uL (150-450); RED BLOOD COUNT 2.29 10^6/uL (3.72-5.28); RED CELL DISTRIBUTION WIDTH 14.5 % (11.5-14.0); WHITE BLOOD COUNT 10.2 10^3/uL (4.0-10.5)
[2020-03-01] MEDS ORDERED: FAMOTIDINE 20 MG TABLET ONE (09:30)
[2020-03-01] MEDS: FAMOTIDINE 20 MG TABLET PO SCH ×2 (09:48→22:29)
[2020-03-01] MEDS: DOCUSATE SODIUM 100 MG CAPSULE PO SCH ×2 (09:48→17:54)
[2020-03-01] MEDS: PRENATAL VITAMIN W DHA CAPSULE PO SCH (09:48)
[2020-03-01] MEDS: FERROUS SULFATE 325 MG TABLET PO SCH ×2 (09:49→17:54)
[2020-03-01] MEDS: SENNOSIDES/DOCUSATE 8.6-50 MG 1 EACH TABLET PO SCH (09:49)
--- NOTE | 2020-03-01 10:47 | PDOC PROGRESS REPORT ---
Subjective-OB Progress Note for:: 03/01/20 Subjective: Pt doing well, no concerns. She reports light bleeding, reg diet and voiding w/o difficulty. Physical Exam (OB) Vital Signs: Temp Pulse Resp BP Pulse Ox 97.9 F 74 20 114/77 100 03/01/20 07:52 03/01/20 07:17 03/01/20 07:17 03/01/20 07:17 03/01/20 07:17 Intake & Output 02/29/20 03/01/20 03/02/20 06:59 06:59 06:59 Intake Total 360 Balance 360 - Maternal Morbidity 59. Maternal Morbidity (serious complications experinced by the mother associated with labor and delivery: None of the above - Lochia Lochia Amount: Small 10-25 ml Lochia Color: Rubra/Red - Abdomen Description: Soft, Round Hernia Present: No Fundal Description: Firm, Midline Fundal Height: u/u - u/2 Objective-Diagnostic Laboratory: 03/01/20 06:45 02/29/20 03:27 03/01/20 06:45 WBC 10.2 RBC 2.29 L Hgb 8.0 L D Hct 22.8 L MCV 100 H MCH 34.8 H MCHC 35.0 RDW 14.5 H Plt Count 190 Assessment and Plan(PN) - Assessment and Plan (1) DELIVERED OUTSIDE HOSPITAL Is this a current diagnosis for this admission?: Yes (2) Acute blood loss anemia Is this a current diagnosis for this admission?: Yes (3) No care in current Qualifiers: Trimester: third trimester Qualified Code(s): O09.33 - Supervision of with insufficient care, third trimester Is this a current diagnosis for this admission?: Yes (4) Tobacco smoking affecting Qualifiers: Trimester: unspecified trimester Qualified Code(s): O99.330 - Smoking (tobacco) complicating , unspecified trimester Is this a current diagnosis for this admission?: Yes (5) Vaginal delivery Is this a current diagnosis for this admission?: Yes (6) Labor, precipitous, delivered Is this a current diagnosis for this admission?: Yes - Time Spent with Patient Time with patient: Less than 15 minutes Medications reviewed and adjusted accordingly: Yes - Disposition Anticipated Discharge Disposition: Home, Self Care Anticipated Discharge Timeframe: within 24 hours
[2020-03-01 13:37] LABS: HEPATITIS C VIRUS AB <0.1 s/co ratio (0.0-0.9)
[2020-03-02] MEDS: IBUPROFEN 800 MG TABLET PO SCH (05:58)
[2020-03-02 07:00] LABS: HEPATITS B SURFACE ANTIGEN Negative (Negative)
[2020-03-02] MEDS: FAMOTIDINE 20 MG TABLET PO SCH (09:26)
[2020-03-02] MEDS: PRENATAL VITAMIN W DHA CAPSULE PO SCH (09:27)
[2020-03-02] MEDS: SENNOSIDES/DOCUSATE 8.6-50 MG 1 EACH TABLET PO SCH (09:27)
[2020-03-02] MEDS: FERROUS SULFATE 325 MG TABLET PO SCH (09:27)
[2020-03-02] MEDS: DOCUSATE SODIUM 100 MG CAPSULE PO SCH (09:27)
--- NOTE | 2020-03-02 11:53 | PDOC DISCHARGE SUMMARY ---
Impression - Admit/DC Date/PCP Admission Date/Primary Care Provider: 02/29/20 03:01 Discharge Date: 03/02/20 - Discharge Diagnosis (1) Labor, precipitous, delivered Is this a current diagnosis for this admission?: Yes (2) DELIVERED OUTSIDE HOSPITAL Is this a current diagnosis for this admission?: Yes - Additional Information Discharge Diet: Regular Discharge Activity: Balance Activity w/Rest, Pelvic Rest Prescriptions: Ibuprofen [Motrin 800 mg Tablet] 800 mg PO Q8HP PRN #60 tablet PRN Reason: Home Medications: Vit,Calc76/Iron/Folic [Pnv 29-1 Tablet] 1 each PO DAILY 04/03/17 Ibuprofen [Motrin 800 mg Tablet] 800 mg PO Q8HP PRN #60 tablet 03/02/20 Hospital Course 59. Maternal Morbidity (serious complications experinced by the mother associated with labor and delivery: None of the above Results Laboratory Results: WBC 10.2 10^3/uL (4.0-10.5) 03/01/20 06:45 RBC 2.29 10^6/uL (3.72-5.28) L 03/01/20 06:45 Hgb 8.0 g/dL (12.0-15.5) L D 03/01/20 06:45 Hct 22.8 % (36.0-47.0) L 03/01/20 06:45 MCV 100 fl (80-97) H 03/01/20 06:45 MCH 34.8 pg (27.0-33.4) H 03/01/20 06:45 MCHC 35.0 g/dL (32.0-36.0) 03/01/20 06:45 RDW 14.5 % (11.5-14.0) H 03/01/20 06:45 Plt Count 190 10^3/uL (150-450) 03/01/20 06:45 Lymph % (Auto) 18.1 % (13-45) 02/29/20 03:27 Cherry % (Auto) 5.0 % (3-13) 02/29/20 03:27 Eos % (Auto) 0.9 % (0-6) 02/29/20 03:27 Baso % (Auto) 0.4 % (0-2) 02/29/20 03:27 Absolute Neuts (auto) 8.2 10^3/uL (1.7-8.2) 02/29/20 03:27 Absolute Lymphs (auto) 2.0 10^3/uL (0.5-4.7) 02/29/20 03:27 Absolute Monos (auto) 0.5 10^3/uL (0.1-1.4) 02/29/20 03:27 Absolute Eos (auto) 0.1 10^3/uL (0.0-0.6) 02/29/20 03:27 Absolute Basos (auto) 0.0 10^3/uL (0.0-0.2) 02/29/20 03:27 Seg Neutrophils % 75.6 % (42-78) 02/29/20 03:27 Sodium 135.1 mmol/L (137-145) L 02/29/20 03:27 Potassium 4.0 mmol/L (3.6-5.0) 02/29/20 03:27 Chloride 111 mmol/L (98-107) H 02/29/20 03:27 Carbon Dioxide 16 mmol/L (22-30) L 02/29/20 03:27 Anion Gap 8 (5-19) 02/29/20 03:27 BUN 4 mg/dL (7-20) L 02/29/20 03:27 Creatinine 0.48 mg/dL (0.52-1.25) L 02/29/20 03:27 Est GFR ( Amer) > 60 (>60) 02/29/20 03:27 Est GFR (MDRD) Non-Af > 60 (>60) 02/29/20 03:27 Glucose 106 mg/dL (75-110) 02/29/20 03:27 Uric Acid 7.2 mg/dL (2.5-7.0) H 02/29/20 03:27 Calcium 8.6 mg/dL (8.4-10.2) 02/29/20 03:27 Total Bilirubin 0.3 mg/dL (0.2-1.3) 02/29/20 03:27 Direct Bilirubin 0.3 mg/dL (0.0-0.4) 02/29/20 03:27 Neonat Total Bilirubin Not Reportable 02/29/20 03:27 Neonat Direct Bilirubin Not Reportable 02/29/20 03:27 Neonat Indirect Bili Not Reportable 02/29/20 03:27 AST 23 U/L (14-36) 02/29/20 03:27 ALT 12 U/L (<35) 02/29/20 03:27 Alkaline Phosphatase 122 U/L (38-126) 02/29/20 03:27 Lactate Dehydrogenase 148 U/L (120-246) 02/29/20 03:27 Total Protein 5.7 g/dL (6.3-8.2) L 02/29/20 03:27 Albumin 3.2 g/dL (3.5-5.0) L 02/29/20 03:27 Urine Opiates Screen UNCONFIRMED POSITIVE 02/29/20 09:30 Urine Methadone Screen NEGATIVE 02/29/20 09:30 Ur Barbiturates Screen NEGATIVE 02/29/20 09:30 Ur Phencyclidine Scrn NEGATIVE 02/29/20 09:30 Ur Amphetamines Screen NEGATIVE 02/29/20 09:30 U Benzodiazepines Scrn NEGATIVE 02/29/20 09:30 Urine Cocaine Screen NEGATIVE 02/29/20 09:30 U Marijuana (THC) Screen UNCONFIRMED POSITIVE 02/29/20 09:30 RPR NONREACTIVE (NONREACTIVE) 02/29/20 03:27 Chlamydia DNA (PCR) NOT DETECTED (NOT DETECT) 02/29/20 06:00 Hep Bs Antigen Negative (Negative) 02/29/20 03:27 Hepatitis C ([facility]) <0.1 s/co ratio (0.0-0.9) 02/29/20 03:27 Hep C Verif Com 1 Comment (.) 02/29/20 03:27 HIV 1&2 Antibody NEGATIVE (NEGATIVE) 02/29/20 03:27 N.gonorrhoeae DNA (PCR) NOT DETECTED (NOT DETECT) 02/29/20 06:00 Rubella IgG Antibody 58.40 IU/mL 02/29/20 03:27 Rubella IgG Ab Interp POSITIVE 02/29/20 03:27 Blood Type O POSITIVE 02/29/20 03:27 Antibody Screen NEGATIVE 02/29/20 03:27 Plan Plan of Treatment: follow up in one week at [facility] for blood pressure check
[2020-03-02 11:54] VITALS: BP 133/88
== END 2020-03-02 13:08 | disposition home or self-care (01) | DRG 776 ==
LOC: LR 03:01 → 2S 06:02
PROVIDERS: ADMIT Obstetrics & Gynecology; ATTEND Obstetrics & Gynecology
DX: O99.335 Smoking (tobacco) complicating the puerperium (principal); D62 Acute posthemorrhagic anemia; F17.210 Nicotine dependence, cigarettes, uncomplicated; O90.81 Anemia of the puerperium; O62.3 Precipitate labor; Z3A.00 Weeks of gestation of pregnancy not specified
CPT/HCPCS: 36415; 80053; 80307; 80349; 80361; 83615; 84550; 85025; 85027; 86592; 86701; 86762; 86803; 86804; 86850; 86900; 86901; 87340; 87491; 87591; 88307; G0480; J2590; J3490